=== PATIENT | female | born 1980 | race Asian ===

== ENCOUNTER 2017-01-27 12:32 | Emergency (ER) | payer OTHER ==
[~2017-01-27] VITALS: Ht 154.9 cm; Wt 60.0 kg
[2017-01-27 12:34] VITALS: BP 117/82
[2017-01-27] MEDS ORDERED: MECLIZINE 25MG TABLET PO ONE (13:00)
== END 2017-01-27 15:11 | disposition home or self-care (01) ==
LOC: ER 13:24
DX: R42 Dizziness and giddiness (principal); V43.52XA Car driver injured in collision with other type car in traffic accident, initial encounter; Y93.89 Activity, other specified; Y99.8 Other external cause status; Y92.89 Other specified places as the place of occurrence of the external cause
CPT/HCPCS: 99283; J8597